=== PATIENT | female | born 2000 | race Caucasian/White ===

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

== ENCOUNTER 2023-08-03 17:42 | Emergency (ER) | payer OTHER, BC, SELFPAY ==
[2023-08-03 17:43] VITALS: BP 139/79; PULSE 113; RESP 14; TEMP 36.4; O2SAT 100; BMI 20.2
[2023-08-03 18:56] LABS: Bacteria 0 SEEN /hpf (None Seen); Mucous, Urine 0 SEEN /hpf (<or=2+); Red Blood Cells-Urine 0 SEEN /hpf (0-5); Squamous Epithelial Cells - UA 0 SEEN /hpf (5-10)
[2023-08-03 18:57] LABS: Color, Urine Yellow (Yellow); Glucose, Dipstick Normal (Normal); Ketone-Dipstick 5 mg/dl (Negative); Leukocyte Esterase-Dipstick 25 /ul (Negative); Nitrite-Dipstick Negative (Negative); Occult Blood-Urine Negative /ul (Negative); Protein-Dipstick Negative (Negative); Urine Bilirubin Dipstick Negative (Negative); Urine Clarity Clear (Clear); Urine Urobilinogen Normal (Normal)
[2023-08-03 19:04] LABS: Internal QC Validated? YES +Cl - CLEAR BKGD; Pregnancy, Urine Positive Negative
[2023-08-03 19:06] LABS: White Blood Cells 0-5 SEEN /hpf (0-5)
--- OUTSIDE RECORDS SUMMARY | 2023-08-03 19:37 | XMS RPT_ITS | CCD ---
Author Name Unknown Address [facility] [address] [place] [address] Organization [facility] Care Team Providers Care Commercial Relief Driver Name Role Phone JENNIFER DAWKINS Consulting Unavailable KEENAN, ANDERS Admitting Unavailable KEENAN, ANDERS Primary Care Unavailable KEENAN, ANDERS Attending Unavailable PROVIDER, UNKNOWN Consulting Unavailable [place] Admitting Unavailable [place] Primary Care Unavailable [place] Attending Unavailable DAWKINS, JENNIFER J Consulting Unavailable PROVIDER, UNKNOWN Consulting Unavailable DAWKINS, JENNIFER J Consulting Unavailable KEENAN, ANDERS Admitting Unavailable KEENAN, ANDERS Primary Care Unavailable KEENAN, ANDERS Attending Unavailable PROVIDER, UNKNOWN Consulting Unavailable DAWKINS, JENNIFER J Attending Unavailable DAWKINS, JENNIFER J Admitting Unavailable DAWKINS, JENNIFER J Primary Care Unavailable DAWKINS, JENNIFER J Consulting Unavailable PROVIDER, UNKNOWN Consulting Unavailable DAWKINS, JENNIFER J Consulting Unavailable DAWKINS, JENNIFER J Attending Unavailable DAWKINS, JENNIFER J Admitting Unavailable DAWKINS, JENNIFER J Primary Care Unavailable PROVIDER, UNKNOWN Consulting Unavailable Results Test Name Value Interpretation Reference Range Facil ity Encounters Encounter Date Encounter Type Care Provider Facility Start: 04-02-2023 End: 04-02-2023 ambulatory [facility] Start: 03-27-2023 End: 03-27-2023 ambulatory JENNIFER Bhargavi DAWKINS [facility] Start: 03-10-2023 End: 03-10-2023 ambulatory JENNIFER Burk DAWKINS [facility] Start: 03-10-2023 End: 03-10-2023 Encounter for general adult medical examination without abnormal findings [facility] Start: 03-05-2023 End: 03-05-2023 ambulatory JENNIFER DAWKINS [facility] Start: 11-26-2022 End: 11-26-2022 ambulatory JENNIFER DAWKINS [facility] Procedures Date Procedure Procedure Detail Performing Clinician Start: 03-31-2019 Blood count hemoglobin Payers Date Payer Category Payer Unknown [id number] 2001 Unknown [id number] 2001 Unknown [id number] Unknown [id number] Unknown [id number] Summary Purpose Family History No Family History Records FoundNo Family History Records FoundNo Family History Records FoundNo Family History Records FoundNo Family History Records Found Advance Directives No Advanced Directives Records FoundNo Advanced Directives Records FoundNo Advanced Directives Records FoundNo Advanced Directives Records FoundNo Advanced Directives Records Found Additional Source Comments INFORMATION SOURCE (unrecogn ized section and content) DATE CREATED AUTHOR AUTHOR'S ORGANIZ ATION 01/07/2020 [facility] DATE CREATED AUTHOR AUTHOR'S ORGANIZ ATION 07/06/2020 [facility] DATE CREATED AUTHOR AUTHOR'S ORGANIZ ATION 03/21/2023 [facility] DATE CREATED AUTHOR AUTHOR'S ORGANIZ ATION 04/03/2023 [facility] FOR RECORDS PERTAINING TO PATIENTS WHO ARE OR HAVE BEEN ENROLLED IN A CHEMICAL DEPENDENCY/SUBSTANCEABUSE PROGRAM, SOME INFORMATION MAY BE OMITTED. This clinical summary was aggregated from multiple sources. Caution should be exercised in using it in the provision of clinical care. This summary normalizes information from multiple sources, and as a consequence, information in this document may materially change the coding, format and clinical context of patient data. In addition, data may be omitted in some cases. CLINICAL DECISIONS SHOULD BE BASED ON THE PRIMARY CLINICAL RECORDS. [facility] [employer] [facility]. provides no warranty or guarantee of the accuracy or completeness of information in this document.
[2023-08-03 20:00] VITALS: RESP 16
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
--- NOTE | 2023-08-03 20:28 | US_ITS ---
STUDY: FIRST TRIMESTER OBSTETRICAL ULTRASOUND REASON FOR EXAM: Female, 23 years old Left adnexal pain rule out ectopic LMP: TECHNIQUE: Transvaginal TECHNICAL QUALITY: Adequate. PRIOR ULTRASOUND: None. FINDINGS: There is visualization of a single gestational sac in a normal intrauterine position. The mean sac diameter (MSD) measures 2.84 cm, indicating an estimated gestational age (EGA) of 8 weeks, 0 days. The gestational sac shape is within normal limits. There is a visualized yolk sac. The yolk sac measures 3.6 mm. The placenta is non-visualized. There is visualization of a live embryo. The crown-rump length (CRL) measures 1.89 cm, indicating an estimated gestational age (EGA) of 8 weeks, 2 days. There is demonstrated cardiac activity with a heart rate of 183 bpm. The estimated gestation age (EGA) by LMP is weeks, days. The estimated date of delivery (DIO) by LMP is . The estimated gestation age (EGA) by US is weeks, days. The estimated date of delivery (DIO) by US is . The uterus measures 8 x 6.8 x 4.7 cm. There is no demonstrated uterine fibroid. The cervix is closed. The right ovary measures 3.5 x 2.2 x 1.8 cm. There is no visualized right adnexal mass or complex lesion. The left ovary not visualized due to bowel gas producing artifact There is minimal fluid in the cul de sac. US/Transvaginal w/Preg US IMPRESSION: Viable intrauterine gestation approximately 8-9 weeks gestational age Nonvisualization of normal left ovary.. Electronically Signed: Marito Valencia MD at 21:26 [facility] Reading Location ID and State: [address] [place] [address] Tel , Service support ,
[2023-08-03 20:34] LABS: hCG Titer Quant., Serum 85645 mIU/mL (1-3)
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
[2023-08-03 22:00] VITALS: BP 127/73; PULSE 103; PULSE 104; RESP 14; TEMP 36.1; O2SAT 99
== END 2023-08-03 22:03 | disposition home or self-care (01) ==
PROVIDERS: Emergency Provider Emergency Medicine; PCP Physician Assistant; Visit Provider Emergency Medicine
DX: O20.0 Threatened abortion (principal); N64.4 Mastodynia; R10.2 Pelvic and perineal pain; O99.891 Other specified diseases and conditions complicating pregnancy; R35.0 Frequency of micturition; Z3A.00 Weeks of gestation of pregnancy not specified
CPT/HCPCS: 76817; 81001; 81025; 84702; 86900; 86901; 99282

== ENCOUNTER → 2023-12-14 | Outpatient (CLI) | payer OTHER, BC, SELFPAY ==
[2023-12-14 07:54] LABS: Glucose GTT-Gestation. Fasting 79 mg/dL (<105)
[2023-12-14 09:26] LABS: Glucose GTT-Gestational 1 Hr 95 mg/dL (<190)
[2023-12-14 10:06] LABS: Glucose GTT-Gestational 2 Hr 118 mg/dL (<165)
[2023-12-14 10:58] LABS: Glucose GTT-Gestational 3 Hr 92 L (<145)
== END | disposition home or self-care (01) ==
LOC: LAB 07:06
PROVIDERS: PCP Physician Assistant; Referring Provider Advanced Practice Midwife; Visit Provider Advanced Practice Midwife
DX: R73.09 Other abnormal glucose (principal)
CPT/HCPCS: 36415; 82951; 82952

== ENCOUNTER 2023-12-29 07:50 | Outpatient (CLI) | payer BC, SELFPAY ==
[2023-12-29 08:00] VITALS: BMI 23.6
[2023-12-29 08:04] VITALS: RESP 16; TEMP 37.5; O2SAT 100
[2023-12-29 08:06] VITALS: BP 133/80; PULSE 114
[2023-12-29 08:41] LABS: ROM Internal Control Test YES-OK TO RESULT pt. (Internal QC); ROM Patient Test Negative (Negative); Record Kit Lot#, ROM+ K1866
[2023-12-29 08:42] LABS: Color, Urine Yellow (Yellow); Glucose, Dipstick Normal (Normal); Ketone-Dipstick 5 mg/dl (Negative); Leukocyte Esterase-Dipstick 25 /ul (Negative); Nitrite-Dipstick Negative (Negative); Occult Blood-Urine Negative /ul (Negative); Protein-Dipstick 15 mg/dl (Negative); Urine Bilirubin Dipstick Negative (Negative); Urine Clarity Sl. Cloudy (Clear); Urine Urobilinogen 1 mg/dl (Normal)
--- NOTE | 2023-12-29 08:58 | OB.TRI.HP_ITS ---
HPI - General General Date of Service: 12/29/23 HPI Narrative MELINDA COLBY, is a 23 F who presents with possible LOF. Maternal Data Information DIO Calculator Estimated Delivery Date Method Current WG Current Estimate 03/12/24 Manual 29w 3d PFSH [facility] Medical History Bone fracture Broken arm Frequent headaches Gastrointestinal problem High blood pressure UTI (urinary tract infection) Home Medications ?Medication ?Instructions ?Recorded ?Last Taken ?Type sumatriptan succinate 50 mg tablet 50 mg PO PRN migraines 08/30/21 Unknown History (Imitrex) aspirin 81 mg capsule 81 mg PO DAILY 12/29/23 12/28/23 History ferrous sulfate 325 mg (65 mg 325 mg PO QODAY anemia in 12/29/23 12/28/23 History iron) tablet (iron) vits,calcium no.78-iron 1 tab PO DAILY 12/29/23 12/28/23 History fumarate-folic acid 29 mg-1 mg tablet (Prenatabs FA) Allergy/AdvReac Type Severity Reaction Status Date / Time acetaminophen (From Percocet) Allergy Intermediate vomiting Verified 12/29/23 08:00 oxycodone (From Percocet) Allergy Intermediate vomiting Verified 12/29/23 08:00 Family History Other Alcoholism Myocardial infarction Parkinson disease Surgical History History of appendectomy S/P tonsillectomy [place] teeth removed Social History Smoking Status: Never smoker alcohol intake: never substance use type: does not use what type of physical activity do you participate in: other NST FHR Rate Baby A Baseline: 145 Variability:: Moderate Accelerations:: 15 x 15 Decelerations:: None NST Reactive:: Yes Uterine Activity:: quiet Assessment & Plan (1) Threatened labor: QUALIFIERS: Trimester: third trimester Qualified Code(s): O47.03 - False labor before 37 completed weeks of gestation, third trimester PLAN: Reactive NST
== END 2023-12-29 08:55 | disposition home or self-care (01) ==
LOC: WPOUT 07:52 → WP 07:53
PROVIDERS: PCP Physician Assistant; Visit Provider Obstetrics & Gynecology
DX: O47.03 False labor before 37 completed weeks of gestation, third trimester (principal); Z3A.29 29 weeks gestation of pregnancy; Z90.49 Acquired absence of other specified parts of digestive tract
CPT/HCPCS: 59025; 59050; 81002; 84112; 87086; 99221; G0378

== ENCOUNTER 2024-01-14 18:45 | Outpatient (CLI) | payer OTHER, BC, SELFPAY ==
[2024-01-14] VITALS (12 sets, daily range): BP systolic 114–126; BP diastolic 64–77; PULSE 100–115; RESP 16; TEMP 37.3; O2SAT 94–99; BMI 24.7
[2024-01-14 20:10] LABS: Hematocrit 31.7 % (37-47); Hemoglobin 10.7 g/dL (12.0-15.0); Mean Corp Hgb Conc 33.8 g/dL (32-36); Mean Corpuscular Hgb 32.6 pg (27.0-32.0); Mean Corpuscular Volume 96.6 fL (81-99); Platelet Count 318 K/mm3 (150-450); RBC Distribution Width CV 13.4 % (11.6-14.6); RBC Distribution Width SD 47.3 fl (35.1-43.9); Red Blood Count 3.28 M/mm3 (4.2-5.4); White Blood Count 13.4 K/mm3 (4.4-11.0)
[2024-01-14 20:28] LABS: Protein, Urine (Random) < 6.0 mg/dL (<11.9)
[2024-01-14 20:59] LABS: AST(SGOT) 11 U/L (15-37); Alanine Aminotransfer ALT/SGPT 12 U/L (13-56); Creatinine, Serum 0.44 mg/dL (0.55-1.02); EST Glomerular Filtration Rate 189 mL/min (>60); Est Glom Filt Rate - Afr Amer 229 mL/min (>60); Estimated Creatinine Clearance 166.03 ml/min; Uric Acid 3.5 mg/dL (2.6-6.0)
--- NOTE | 2024-01-14 21:07 | OB.TRI.NOTE ---
HPI - General General Date of Admission: 01/14/24 Date of Service: 01/14/24 Chief Complaint: swollen hands and feet. HPI Narrative MELINDA COLBY, is a 23 F who presents swollen hands and feet for the last 2 days. Pressure in her head but not pain. Was taking her blood pressure at home and says it was rising throughout the day. No hx of HTN. Good movement. No contractions Maternal Data Information DIO Calculator Estimated Delivery Date Method Current WG Current Estimate 03/12/24 Manual 31w 5d Final DIO: 02/10/24 Gestational age: 31+5 PFSH PFS Medical History Bone fracture Broken arm Frequent headaches Gastrointestinal problem High blood pressure UTI (urinary tract infection) Home Medications ?Medication ?Instructions ?Recorded ?Last Taken ?Type sumatriptan succinate 50 mg tablet 50 mg PO PRN migraines 08/30/21 Unknown History (Imitrex) aspirin 81 mg capsule 81 mg PO DAILY 12/29/23 12/28/23 History ferrous sulfate 325 mg (65 mg 325 mg PO QODAY anemia in 12/29/23 12/28/23 History iron) tablet (iron) vits,calcium no.78-iron 1 tab PO DAILY 12/29/23 12/28/23 History fumarate-folic acid 29 mg-1 mg tablet (Prenatabs FA) Allergy/AdvReac Type Severity Reaction Status Date / Time acetaminophen (From Percocet) Allergy Intermediate vomiting Verified 01/14/24 19:48 oxycodone (From Percocet) Allergy Intermediate vomiting Verified 01/14/24 19:48 Family History Other Alcoholism Myocardial infarction Parkinson disease Surgical History History of appendectomy S/P tonsillectomy [place] teeth removed Social History Smoking Status: Never smoker alcohol intake: never substance use type: does not use what type of physical activity do you participate in: other History 1 Elective abortions Hx Para 0 Spontaneous abortions Hx # Term Pregnancies Ectopic pregnancies Hx # Pregnancies Multiple births # of living children ROS Constitutional Constitutional: Denies fatigue, fever(s) or malaise ENT HEENT: Denies dizziness or headache(s) Cardiovascular Cardiovascular: Denies chest pain, dyspnea or lightheadedness Respiratory/Chest Respiratory/Chest: Denies cough or dyspnea Neurologic Neurologic: Denies confusion, dizziness, headache(s), numbness or weakness Physical Exam Const alert and oriented x3 General Appearance: cooperative and comfortable Orientation / Consciousness: awake and oriented to person HEENT normocephalic and head/scalp atraumatic Eyes PERRL and EOMs intact bilaterally Neck full ROM Resp normal respiratory effort Extremity normal to inspection and full ROM General Extremity: edema bilateral upper extremity trace and lower extremity Details: trace Neuro oriented x3 NST FHR Rate Baby A Baseline: 140 Variability:: Moderate Accelerations:: 15 x 15 Decelerations:: None NST Reactive:: Yes Uterine Activity:: quiet Assessment & Plan (1) Edema: QUALIFIERS: Edema type: gestational Trimester: third trimester Qualified Code(s): O12.03 - Gestational edema, third trimester
== END 2024-01-14 21:10 | disposition home or self-care (01) ==
LOC: WPOUT 18:51 → WP 18:52
PROVIDERS: PCP Physician Assistant; Visit Provider Obstetrics & Gynecology
DX: O12.03 Gestational edema, third trimester (principal); Z3A.31 31 weeks gestation of pregnancy
CPT/HCPCS: 36415; 59025; 59050; 82565; 82570; 84156; 84450; 84460; 84550; 85027; 99221; G0378

== ENCOUNTER 2024-02-17 07:28 | Outpatient (CLI) | payer MEDICAID, SELFPAY ==
[2024-02-17 07:40] VITALS: BMI 25.1
[2024-02-17 07:49] VITALS: BP 129/79; PULSE 109; RESP 16; TEMP 37.1; O2SAT 100
[2024-02-17 07:50] VITALS: PULSE 111; O2SAT 100
[2024-02-17 07:55] VITALS: PULSE 108; O2SAT 98
[2024-02-17 07:58] VITALS: BP 124/75; PULSE 107
[2024-02-17 08:03] LABS: Bacteria 0 SEEN /hpf (None Seen); Mucous, Urine 0 SEEN /hpf (<or=2+); Red Blood Cells-Urine 0 SEEN /hpf (0-5); Squamous Epithelial Cells - UA 0 SEEN /hpf (5-10); White Blood Cells 0 SEEN /hpf (0-5)
[2024-02-17 08:06] LABS: Color, Urine Yellow (Yellow); Glucose, Dipstick Normal (Normal); Ketone-Dipstick Negative (Negative); Leukocyte Esterase-Dipstick 25 /ul (Negative); Nitrite-Dipstick Negative (Negative); Occult Blood-Urine Negative /ul (Negative); Protein-Dipstick 15 mg/dl (Negative); Specific Gravity, Urine 1.005 (1.002-1.030); Urine Bilirubin Dipstick Negative (Negative); Urine Clarity Clear (Clear); Urine Urobilinogen Normal (Normal)
[2024-02-17 08:24] LABS: ROM Internal Control Test YES-OK TO RESULT pt. (Internal QC); ROM Patient Test Negative (Negative); Record Kit Lot#, ROM+ K1866
--- NOTE | 2024-02-17 21:51 | OB.TRI.NOTE ---
HPI - General General Date of Admission: 02/17/24 Date of Service: 02/17/24 Chief Complaint: r/o labor HPI Narrative MELINDA COLBY, is a 23 F who presents for possible LOF. Some contractions. ROM was negative and she was FT with no cervical change. Maternal Data Information DIO Calculator Estimated Delivery Date Method Current WG Current Estimate 03/12/24 Manual 36w 5d Final DIO: 03/12/24 Gestational age: 36.4 PFSH PFSH Medical History Bone fracture Broken arm Frequent headaches Gastrointestinal problem High blood pressure UTI (urinary tract infection) Home Medications ?Medication ?Instructions ?Recorded ?Last Taken ?Type sumatriptan succinate 50 mg tablet 50 mg PO PRN migraines 08/30/21 Unknown History (Imitrex) aspirin 81 mg capsule 81 mg PO DAILY 12/29/23 12/28/23 History ferrous sulfate 325 mg (65 mg 325 mg PO QODAY anemia in 12/29/23 02/17/24 History iron) tablet (iron) vits,calcium no.78-iron 1 tab PO DAILY 12/29/23 02/17/24 History fumarate-folic acid 29 mg-1 mg tablet (Prenatabs FA) Allergy/AdvReac Type Severity Reaction Status Date / Time oxycodone (From Percocet) Allergy Intermediate vomiting Verified 02/17/24 08:02 Family History Other Alcoholism Myocardial infarction Parkinson disease Surgical History History of appendectomy S/P tonsillectomy [place] teeth removed Social History Smoking Status: Never smoker alcohol intake: never substance use type: does not use what type of physical activity do you participate in: other History 1 Elective abortions Hx Para 0 Spontaneous abortions Hx # Term Pregnancies Ectopic pregnancies Hx # Pregnancies Multiple births # of living children NST FHR Rate Baby A Baseline: 130 Variability:: Moderate Accelerations:: 15 x 15 Decelerations:: None NST Reactive:: Yes FHR Category:: Category I Uterine Activity:: irregular Assessment & Plan (1) Encounter for suspected PROM, with rupture of membranes not found: (2) 36 weeks gestation of : PLAN: Plan Labor precautions and follow up as scheduled
== END 2024-02-17 09:00 | disposition home or self-care (01) ==
LOC: WPOUT 07:34 → WP 07:36
PROVIDERS: PCP Physician Assistant; Referring Provider Obstetrics & Gynecology; Visit Provider Obstetrics & Gynecology
DX: Z03.71 Encounter for suspected problem with amniotic cavity and membrane ruled out (principal); Z79.82 Long term (current) use of aspirin; Z3A.36 36 weeks gestation of pregnancy; O16.3 Unspecified maternal hypertension, third trimester
CPT/HCPCS: 59025; 59050; 81001; 84112; 99221; G0378

== ENCOUNTER 2024-02-20 12:00 | Outpatient (CLI) | payer MEDICAID, SELFPAY ==
[2024-02-20 12:15] VITALS: BP 130/82; PULSE 96
[2024-02-20 12:16] VITALS: RESP 16; TEMP 36.9
[2024-02-20 12:22] VITALS: BMI 24.7
[2024-02-20 13:00] LABS: ROM Internal Control Test YES-OK TO RESULT pt. (Internal QC); ROM Patient Test Negative (Negative); Record Kit Lot#, ROM+ K1866
--- NOTE | 2024-02-20 19:31 | OB.TRI.NOTE ---
HPI - General General Date of Admission: 02/20/24 Date of Service: 02/20/24 Chief Complaint: labor HPI Narrative MELINDA COLBY, is a 23 F who presents with ctx's and possible LOF. No bleeding. Good FM. Maternal Data Information DIO Calculator Estimated Delivery Date Method Current WG Current Estimate 03/12/24 Manual 37w 0d PFSH PFSH Medical History Bone fracture Broken arm Frequent headaches Gastrointestinal problem High blood pressure UTI (urinary tract infection) Home Medications ?Medication ?Instructions ?Recorded ?Last Taken ?Type sumatriptan succinate 50 mg tablet 50 mg PO PRN migraines 08/30/21 Unknown History (Imitrex) aspirin 81 mg capsule 81 mg PO DAILY 12/29/23 12/28/23 History ferrous sulfate 325 mg (65 mg 325 mg PO QODAY anemia in 12/29/23 02/17/24 History iron) tablet (iron) vits,calcium no.78-iron 1 tab PO DAILY 12/29/23 02/17/24 History fumarate-folic acid 29 mg-1 mg tablet (Prenatabs FA) Allergy/AdvReac Type Severity Reaction Status Date / Time oxycodone (From Percocet) Allergy Intermediate vomiting Verified 02/20/24 12:22 Family History Other Alcoholism Myocardial infarction Parkinson disease Surgical History History of appendectomy S/P tonsillectomy [place] teeth removed Social History Smoking Status: Never smoker alcohol intake: never substance use type: does not use what type of physical activity do you participate in: other History 1 Elective abortions Hx Para 0 Spontaneous abortions Hx # Term Pregnancies Ectopic pregnancies Hx # Pregnancies Multiple births # of living children NST FHR Rate Baby A Baseline: 125 Variability:: Moderate Accelerations:: 15 x 15 Decelerations:: None NST Reactive:: Yes FHR Category:: Category I Uterine Activity:: ctx's q 3-8 min Assessment & Plan (1) 37 weeks gestation of : PLAN: No cervical change made after observation NST reactive ROM plus negative D/c home with return precautions (2) Uterine contractions:
== END 2024-02-20 14:45 | disposition home or self-care (01) ==
LOC: WPOUT 12:04 → WP 12:05
PROVIDERS: PCP Physician Assistant; Referring Provider Obstetrics & Gynecology; Visit Provider Obstetrics & Gynecology
DX: O47.1 False labor at or after 37 completed weeks of gestation (principal); O16.3 Unspecified maternal hypertension, third trimester; Z3A.37 37 weeks gestation of pregnancy
CPT/HCPCS: 59025; 59050 ×2; 84112; G0378 ×2; 99221

== ENCOUNTER 2024-02-21 22:12 | Inpatient (IN) | payer MEDICAID, SELFPAY ==
[2024-02-21] VITALS (15 sets, daily range): BP systolic 125–144; BP diastolic 68–86; PULSE 108–125; RESP 16; TEMP 36.2; O2SAT 91–100; BMI 24.7
[2024-02-21] MEDS: Lactated Ringers 1,000 ML 50 ML IV (22:35)
[2024-02-21] MEDS: Lactated Ringers 1,000 ML 999 ML IV (22:35)
[2024-02-21 22:57] LABS: Basophil# 0.06 X10^3/uL; Basophil% 0.3 % (0-1); Eosinophil# 0.02 X10^3/uL; Eosinophils% 0.1 % (0-5); Hematocrit 37.7 % (37-47); Hemoglobin 12.6 g/dL (12.0-15.0); Lymphocyte % 18.9 % (19-41); Mean Corp Hgb Conc 33.4 g/dL (32-36); Mean Corpuscular Hgb 32.1 pg (27.0-32.0); Mean Corpuscular Volume 96.2 fL (81-99); Mean Platelet Vol. 10.4 fl (6.2-12.0); Monocyte# 1.39 X10^3/uL; Monocyte% 7.7 % (0-10); NRBC Flagged by Analyzer 0 % (0-5); Neutrophil # 12.96 X10^3/uL (2.7-7.7); Platelet Count 326 K/mm3 (150-450); RBC Distribution Width CV 13.3 % (11.6-14.6); RBC Distribution Width SD 47.2 fl (35.1-43.9); Red Blood Count 3.92 M/mm3 (4.2-5.4)
[2024-02-21 23:31] LABS: Syphilis Antibodies Non-reactive
[2024-02-21] MEDS: fentaNYL-bupivacaine (epidural) 100 ML BAG EPIDURAL (23:37)
[2024-02-22] VITALS (21 sets, daily range): BP systolic 107–138; BP diastolic 55–84; PULSE 84–122; RESP 15–16; TEMP 36.2–37; O2SAT 99–100
[2024-02-22 02:01] LABS: ROM Internal Control Test YES-OK TO RESULT pt. (Internal QC); ROM Patient Test POSITIVE (Negative); Record Kit Lot#, ROM+ K1866
[2024-02-22] MEDS: Lactated Ringers 1,000 ML 200 ML IV (06:11)
[2024-02-22] MEDS: fentaNYL-bupivacaine (epidural) 100 ML BAG EPIDURAL (06:12)
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
[2024-02-22] MEDS: Oxytocin 15 Units/NS 250ml 15 UNITS/250 ML IV.SOLN 334 UNITS IV (08:40)
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
[2024-02-22] MEDS: Oxytocin 15 Units/NS 250ml 15 UNITS/250 ML IV.SOLN 83 UNITS IV (09:18)
[2024-02-22] MEDS: Acetaminophen 500 MG Tablet 1000 MG PO ×2 (11:05→19:56)
[2024-02-22] MEDS: Ibuprofen 600 MG Tablet PO (16:45)
[2024-02-22] MEDS: Senna/Docusate Sodium 1 Tablet PO (19:56)
[2024-02-23] MEDS: Ibuprofen 600 MG Tablet PO (00:02)
[2024-02-23 03:22] VITALS: BP 120/89; PULSE 73; RESP 16; TEMP 36.2
[2024-02-23 06:05] LABS: Absolute Lymphocyte Count 3.65 X10^3/uL (0.83-4.51); Absolute Neutrophil Count 10.8 X10^3/uL (2.0-7.7); Basophil# 0.05 X10^3/uL; Basophil% 0.3 % (0-1); Eosinophil# 0.28 X10^3/uL; Eosinophils% 1.7 % (0-5); Hematocrit 31.5 % (37-47); Hemoglobin 10.6 g/dL (12.0-15.0); Lymphocyte # 3.65 X10^3/ul (0.83-4.51); Lymphocyte % 22.4 % (19-41); Mean Corp Hgb Conc 33.7 g/dL (32-36); Mean Corpuscular Hgb 32.1 pg (27.0-32.0); Mean Corpuscular Volume 95.5 fL (81-99); Mean Platelet Vol. 9.9 fl (6.2-12.0); Monocyte# 1.35 X10^3/uL; Monocyte% 8.3 % (0-10); NRBC Flagged by Analyzer 0 % (0-5); Neutrophil # 10.84 X10^3/uL (2.7-7.7); Neutrophil % 66.3 % (47-70); Platelet Count 269 K/mm3 (150-450); RBC Distribution Width CV 13.7 % (11.6-14.6); RBC Distribution Width SD 47.6 fl (35.1-43.9); White Blood Count 16.3 K/mm3 (4.4-11.0)
[2024-02-23] MEDS: Acetaminophen 500 MG Tablet 1000 MG PO (06:16)
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
[2024-02-23 10:29] VITALS: BP 118/82; PULSE 85; RESP 16; TEMP 36.9; O2SAT 100
[2024-02-23 14:39] VITALS: BP 123/84; PULSE 77; RESP 16; TEMP 36.4; O2SAT 100
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
== END 2024-02-23 16:25 | disposition home or self-care (01) | DRG 560 ==
LOC: WPOUT 22:47 → WP 22:47
PROVIDERS: Admitting Provider Advanced Practice Midwife; PCP Physician Assistant; Referring Provider Obstetrics & Gynecology; Visit Provider Advanced Practice Midwife
DX: O99.02 Anemia complicating childbirth (principal); Z37.0 Single live birth; O70.0 First degree perineal laceration during delivery; Z3A.37 37 weeks gestation of pregnancy; Z63.0 Problems in relationship with spouse or partner; Z91.89 Other specified personal risk factors, not elsewhere classified
CPT/HCPCS: 59025; 59050; 84112; 85025; 86780; 86850; 86900; 86901; 99221; J7120; G0378